=== PATIENT | female | born 1995 | race African-American/Black ===

== ENCOUNTER → 2024-06-18 | Outpatient (REF) | payer OTHER ==
[~2024-06-18] MED LIST: IOPAMIDOL 370 MG/ML 100 ML INFUS..BTL INJ ONE
== END ==
LOC: DX 10:06
PROVIDERS: ATTEND Specialist
DX: N97.1 Female infertility of tubal origin (principal); N84.0 Polyp of corpus uteri
CPT/HCPCS: 74740; 81025; Q9967